=== PATIENT | male | born 1965 | race African-American/Black ===

== ENCOUNTER 2017-12-06 09:25 | Emergency (ER) | payer MEDICARE, BC ==
[2017-12-06 10:54] LABS: AGAP ISTAT 17 mmol/L (6-14); BUN ISTAT 18 mg/dL (8-26); CHLORIDE ISTAT 105 mmol/L (98-110); CREATININE ISTAT 1.9 mg/dL (0.5-1.4); GLUCOSE ISTAT 148 mg/dL (70-99); HEMATOCRIT ISTAT 43 % (37-52); HEMOGLOBIN ISTAT 14.6 g/dL (14-18); ION CA ISTAT 1.39 mmol/L (1.13-1.32); POTASSIUM ISTAT 3.4 mmol/L (3.5-5.0); SODIUM ISTAT 139 mmol/L (135-145); TOT CO2 ISTAT 22 mmol/L (23-32)
== END 2017-12-06 11:15 | disposition home or self-care (01) ==
LOC: ER 09:25
DX: H66.91 Otitis media, unspecified, right ear (principal); J32.0 Chronic maxillary sinusitis; I10 Essential (primary) hypertension; Z94.0 Kidney transplant status
CPT/HCPCS: 36415; 80047; 85014; 85018; 99283